=== PATIENT | female | born 1995 | race African-American/Black ===

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

== ENCOUNTER 2018-02-05 02:50 | Emergency (ER) | payer BC ==
[2018-02-05] MEDS ORDERED: SODIUM CHLORIDE 1,000 ML IV STA (03:00)
--- NOTE | 2018-02-05 03:00 | PDOC ---
History of Present Illness - General Chief Complaint: Nausea/Vomiting Stated Complaint: VOMITING Time Seen by Provider: 02/05/18 03:00 History Source: Patient - History of Present Illness Initial Comments: 02/05/18 04:33 22 year old female with NV x 2 days, denies abdominal pain or discomfort, urinary symptoms./ patient reports that she normally has episodes of vomiting during the start of her menstrual cycle for one day this time vomiting. LMP . Past History - Past Medical History Allergies/Adverse Reactions: Allergies Allergy/AdvReac Type Severity Reaction Status Date / Time No Known Allergies Allergy Verified 11/17/16 00:41 Home Medications: Ambulatory Orders NK [No Known Home Medication] 02/05/18 Asthma: Yes - Immunization History Immunization Up to Date: Yes - Suicide/Smoking/Psychosocial Hx Smoking Status: No Smoking History: Never smoked Have you smoked in the past 12 months: No Number of Cigarettes Smoked Daily: 0 Hx Alcohol Use: No Drug/Substance Use Hx: No Substance Use Type: None Review of Systems - Review of Systems Able to Perform ROS?: Yes Is the patient limited German proficient: No Constitutional: No: Symptoms Reported, See HPI, Chills, Diaphoresis, Fever, Loss of Appetite, Malaise, Night Sweats, Weakness, Weight Stable, Unintentional Wgt. Loss, Unexplained wgt Loss, Other ABD/GI: Yes: Nausea, Vomiting *Physical Exam - Vital Signs 02/05/18 04:57 Last Vital Signs Temp Pulse Resp BP Pulse Ox 98.5 F 98 H 19 101/67 100 02/05/18 03:00 02/05/18 03:00 02/05/18 03:00 02/05/18 03:00 02/05/18 03:00 - Physical Exam General Appearance: Yes: Appropriately Dressed Respiratory/Chest: positive: Lungs Clear, Normal Breath Sounds Cardiovascular: positive: Regular Rhythm, Regular Rate ED Treatment Course - LABORATORY CBC & Chemistry Diagram: 02/05/18 03:00 02/05/18 03:00 Medical Decision Making - Medical Decision Making 02/05/18 05:56 currently tolerating PO . no abdominal pain. 02/05/18 05:58 UA moderate epithelial cells , leuks , large blood and wbc. no urinary symptoms. not a clean sample. will defer treatment. *DC/Admit/Observation/Transfer Diagnosis at time of Disposition: Nausea & vomiting Qualifiers: Vomiting type: unspecified Vomiting Intractability: non-intractable Qualified Code(s): R11.2 - Nausea with vomiting, unspecified - Discharge Dispostion Disposition: HOME - Referrals Referrals: Ferdinand Negron MD [Primary Care Provider] - - Patient Instructions Printed Discharge Instructions: DI for Vomiting -- Adult Additional Instructions: drink plenty of fluids or gatorade start a BRAT (bananas, rice apples, toast) follow up with your doctor as soon as possible. - Post Discharge Activity
[2018-02-05] MEDS ORDERED: ONDANSETRON 4 MG/2 ML VIAL IVPUSH ONE (03:15)
[2018-02-05] MEDS ORDERED: ONDANSETRON 4 MG/2 ML VIAL ONE ×2 (03:18)
[2018-02-05 03:21] LABS: BASO % 0.5 % (0-2.0); EOS % 1.2 % (0-4.5); HEMATOCRIT 39.1 % (32.4-45.2); HEMOGLOBIN 13.6 GM/dL (10.7-15.3); MCH 30.1 pg (25.7-33.7); MCHC 34.9 g/dl (32.0-36.0); MEAN CELL VOLUME 86.1 fl (80-96); MEAN PLT VOLUME 7.4 fl (7.5-11.1); MONO % 5.8 % (3.8-10.2); NEUT % 69.5 % (42.8-82.8); PLATELET COUNT 304 K/MM3 (134-434); RBC 4.53 M/mm3 (3.60-5.2); RDW 13.6 % (11.6-15.6); WHITE BLOOD COUNT 3.8 K/mm3 (4.0-10.0)
[2018-02-05 03:48] VITALS: BP 101/67; PULSE 98; TEMP 98.5; BMI 15.9
[2018-02-05 04:17] LABS: ALBUMIN 4.3 g/dl (3.4-5.0); ALK PHOS 67 U/L (45-117); ANION GAP 12 MMOL/L (8-16); BILIRUBIN,TOTAL 0.6 mg/dL (0.2-1); BLOOD UREA NITROGEN 17 mg/dL (7-18); CALCIUM 9.3 mg/dL (8.5-10.1); CHLORIDE 104 mmol/L (98-107); CO2 23 mmol/L (21-32); CREATININE 0.8 mg/dL (0.55-1.3); GLUCOSE,RANDOM 96 mg/dL (74-106); LIPASE 114 U/L (73-393); POTASSIUM 3.6 mmol/L (3.5-5.1); SGOT/AST 17 U/L (15-37); SGPT/ALT 18 U/L (13-61); SODIUM 139 mmol/L (136-145)
[2018-02-05 04:38] LABS: URINE APPEARANCE SLCLOUDY; URINE COLOR DKYELLOW; URINE GLUCOSE (UA) NEGATIVE (NEGATIVE); URINE KETONE 2+ (NEGATIVE); URINE LEUK ESTERASE 2+ (NEGATIVE); URINE NITRITE NEGATIVE (NEGATIVE); URINE PROTEIN 2+ (NEGATIVE); URINE UROBILINOGEN 4.0 E.U/dl mg/dL (0.2-1.0)
[2018-02-05] MEDS ORDERED: SODIUM CHLORIDE 1,000 ML IV SCH (04:45)
[2018-02-05 04:47] LABS: EPI CELLS MODERATE /HPF (FEW); URINE BACTERIA FEW /hpf (NONE SEEN); URINE HYALINE CAST 2 /lpf; URINE MUCUS MANY
== END 2018-02-05 06:58 | disposition home or self-care (01) ==
LOC: JER 02:50
PROC: 3E0337Z Introduction of Electrolytic and Water Balance Substance into Peripheral Vein, Percutaneous Approach (ICD-10-PCS; principal; 2018-02-05)
PROC: 3E033GC Introduction of Other Therapeutic Substance into Peripheral Vein, Percutaneous Approach (ICD-10-PCS; 2018-02-05)
DX: R11.2 Nausea with vomiting, unspecified (principal)
CPT/HCPCS: 36415; 80053; 81003; 81015; 83690; 84703; 85025; 99282-25; J7030

== ENCOUNTER 2018-05-19 11:45 | Emergency (ER) | payer BC ==
[2018-05-19 12:04] VITALS: BP 95/61; PULSE 74; TEMP 98.9; BMI 20.7
[2018-05-19] MEDS ORDERED: ONDANSETRON 4 MG/2 ML VIAL IVPUSH ONE (12:59)
--- NOTE | 2018-05-19 13:01 | PDOC ---
History of Present Illness - General Chief Complaint: Nausea/Vomiting Stated Complaint: VOMITING Time Seen by Provider: 05/19/18 12:55 History Source: Patient Past History - Past Medical History Allergies/Adverse Reactions: Allergies Allergy/AdvReac Type Severity Reaction Status Date / Time No Known Allergies Allergy Verified 11/17/16 00:41 Home Medications: Ambulatory Orders Metoclopramide HCl [Reglan] 10 mg PO Q8H #12 tablet 05/19/18 Nitrofurantoin Monohyd/M-Cryst [Macrobid -] 100 mg PO BID #14 capsule 05/19/18 Asthma: Yes COPD: No Other medical history: scoliosis - Immunization History Immunization Up to Date: Yes - Suicide/Smoking/Psychosocial Hx Smoking Status: No Smoking History: Never smoked Have you smoked in the past 12 months: No Number of Cigarettes Smoked Daily: 0 Information on smoking cessation initiated: No Hx Alcohol Use: No Drug/Substance Use Hx: No Substance Use Type: None Review of Systems - Review of Systems Constitutional: No: Chills, Fever ABD/GI: Yes: Nausea, Vomiting. No: Diarrhea, Abdominal cramping : No: Burning, Dysuria, Discharge, Flank Pain, Hematuria *Physical Exam - Vital Signs Last Vital Signs Temp Pulse Resp BP Pulse Ox 98.9 F 74 18 95/61 98 05/19/18 12:02 05/19/18 12:02 05/19/18 12:02 05/19/18 12:02 05/19/18 12:02 - Physical Exam General Appearance: Yes: Appropriately Dressed. No: Apparent Distress HEENT: positive: Normal Voice Neck: positive: Supple Respiratory/Chest: negative: Respiratory Distress Gastrointestinal/Abdominal: positive: Soft. negative: Tender Musculoskeletal: negative: CVA Tenderness Integumentary: positive: Dry, Warm Neurologic: positive: Fully Oriented, Alert, Normal Mood/Affect ED Treatment Course - LABORATORY CBC & Chemistry Diagram: 05/19/18 13:26 05/19/18 13:26 Medical Decision Making - Medical Decision Making 05/19/18 12:56 22 yo F, h/o asthma, eczema, scoliosis, here with intermittent nausea, vomiting x several days. No significant abdominal pain and no diarrhea, fever, chills, dysuria or vag bleed. States she has been non-compliant with her OCPs and took a test last week which came out positive. ~10 weeks by dates if preg. Patient does not wish to carry to term see exam M/l hyperemesis gravidarum + preg test at home last week No care No lower abd pain/vag bleed Exam unremarkable -IVF -zofran -labs -US 05/19/18 15:44 +IUP @ 7 weeks w/ cardiac activity on US. UTI on UA, cx sent. Pt reports feeling sig better w/ meds and IVF, able to remberto po here. Will dc w/ abx, small dose of reglan and poll clerk f/u *DC/Admit/Observation/Transfer Diagnosis at time of Disposition: Hyperemesis gravidarum UTI (urinary tract infection) Qualifiers: Urinary tract infection type: acute cystitis Hematuria presence: without hematuria Qualified Code(s): N30.00 - Acute cystitis without hematuria - Discharge Dispostion Disposition: HOME Condition at time of disposition: Improved - Prescriptions Prescriptions: Metoclopramide HCl [Reglan] 10 mg PO Q8H #12 tablet Nitrofurantoin Monohyd/M-Cryst [Macrobid -] 100 mg PO BID #14 capsule - Referrals Referrals: Mary Lewis MD [Staff Physician] - - Patient Instructions Printed Discharge Instructions: Hyperemesis Gravidarum, DI for Urinary Tract Infection (UTI) Additional Instructions: Your ultrasound shows that you are about 7 weeks . There was heart activity seen. Your Urine Shows a UTI and You Were Started on Antibiotics for This. Please Follow-Up with Dr. Lewis of [facility] or follow with [facility] at [facility] at [phone], located at [place] - Post Discharge Activity
[2018-05-19 13:40] LABS: BASO % 0.5 % (0-2.0); EOS % 0.2 % (0-4.5); HEMATOCRIT 34.6 % (32.4-45.2); HEMOGLOBIN 11.6 GM/dL (10.7-15.3); MCH 28.9 pg (25.7-33.7); MCHC 33.5 g/dl (32.0-36.0); MEAN CELL VOLUME 86.4 fl (80-96); MONO % 5.7 % (3.8-10.2); NEUT % 61.6 % (42.8-82.8); PLATELET COUNT 348 K/MM3 (134-434); RDW 13.7 % (11.6-15.6); WHITE BLOOD COUNT 4.6 K/mm3 (4.0-10.0)
[2018-05-19 13:45] LABS: HCG,QUALITATIVE URINE Positive
[2018-05-19 13:48] LABS: EPI CELLS 12.5 /HPF (0-5/HPF); PH,URINE 6.5 (5.0-8.0); URINE APPEARANCE CLOUDY; URINE BACTERIA 374.3 /hpf (NEGATIVE); URINE BILIRUBIN NEGATIVE (NEGATIVE); URINE CASTS 119 /hpf (0-8); URINE COLOR DK YELLOW; URINE GLUCOSE (UA) NEGATIVE (NEGATIVE); URINE KETONE 2+ (NEGATIVE); URINE LEUK ESTERASE 2+ (NEGATIVE); URINE NITRITE NEGATIVE (NEGATIVE); URINE PROTEIN 1+ (NEGATIVE); URINE RBC 9 /hpf (0-4); URINE WBC 162 /hpf (0-5)
[2018-05-19] MEDS ORDERED: METOCLOPRAMIDE HCL INJECTION 10 MG/2 ML VIAL ONE (14:10)
[2018-05-19] MEDS ORDERED: METOCLOPRAMIDE HCL INJECTION 10 MG/2 ML VIAL IVPB ONE (14:13)
[2018-05-19] MEDS ORDERED: SODIUM CHLORIDE 1,000 ML IV STA (14:13)
[2018-05-19 14:16] LABS: ALBUMIN 3.9 g/dl (3.4-5.0); ALK PHOS 39 U/L (45-117); ANION GAP 6 MMOL/L (8-16); BILIRUBIN,TOTAL 0.4 mg/dL (0.2-1); BLOOD UREA NITROGEN 12 mg/dL (7-18); CALCIUM 9.5 mg/dL (8.5-10.1); CHLORIDE 103 mmol/L (98-107); CO2 27 mmol/L (21-32); CREATININE 0.5 mg/dL (0.55-1.3); GLUCOSE,RANDOM 78 mg/dL (74-106); LIPASE 133 U/L (73-393); SGOT/AST 12 U/L (15-37); SGPT/ALT 15 U/L (13-61); SODIUM 136 mmol/L (136-145); TOT PROT 7.3 g/dl (6.4-8.2)
--- NOTE | 2018-05-19 16:29 | PDOC ---
*Physical Exam - Vital Signs Last Vital Signs Temp Pulse Resp BP Pulse Ox 98.9 F 74 18 95/61 98 05/19/18 12:02 05/19/18 12:02 05/19/18 12:02 05/19/18 12:02 05/19/18 12:02 ED Treatment Course - LABORATORY CBC & Chemistry Diagram: 05/19/18 13:26 05/19/18 13:26 - ADDITIONAL ORDERS Additional order review: Laboratory Results 05/19/18 05/19/18 13:35 13:26 Sodium 136 Potassium 4.0 Chloride 103 Carbon Dioxide 27 Anion Gap 6 L BUN 12 Creatinine 0.5 L Creat Clearance w eGFR 157.30 Random Glucose 78 Calcium 9.5 Total Bilirubin 0.4 AST 12 L ALT 15 Alkaline Phosphatase 39 L Total Protein 7.3 Albumin 3.9 Lipase 133 Urine Color Dk yellow Urine Appearance Cloudy Urine pH 6.5 D Ur Specific Encinal 1.038 H Urine Protein 1+ H Urine Glucose (UA) Negative Urine Ketones 2+ H Urine Blood Negative Urine Nitrite Negative Urine Bilirubin Negative Urine Urobilinogen 1.0 Ur Leukocyte Esterase 2+ H Urine WBC (Auto) 162 Urine RBC (Auto) 9 Urine Casts (Auto) 119 U Pathogenic Cast Auto None seen U Epithel Cells (Auto) 12.5 Urine Bacteria (Auto) 374.3 Urine HCG, Qual Positive 05/19/18 13:26 RBC 4.00 MCV 86.4 MCHC 33.5 RDW 13.7 MPV 7.0 L Neutrophils % 61.6 Lymphocytes % 32.0 D Monocytes % 5.7 Eosinophils % 0.2 D Basophils % 0.5 - Medications Given in the ED: ED Medications Discontinued Medications Generic Name Dose Route Start Last Admin Trade Name Freq PRN Reason Stop Dose Admin Sodium Chloride 1,000 mls @ 1,000 mls/hr 05/19/18 14:13 05/19/18 14:48 Normal Saline - IV 05/19/18 15:12 1,000 mls/hr ASDIR STA Administration Metoclopramide HCl 10 mg 05/19/18 14:13 05/19/18 14:48 Reglan Injection - IVPB 05/19/18 14:14 10 mg ONCE ONE Administration Ondansetron HCl 4 mg 05/19/18 12:59 05/19/18 16:28 Zofran Injection IVPUSH 05/19/18 13:00 Not Given ONCE ONE Medical Decision Making - Medical Decision Making 05/19/18 16:29 Pt seen by Midlevel Provider under my direct supervision Ancillary studies reviewed I agree with plan as outlined by Midlevel Provider *DC/Admit/Observation/Transfer Diagnosis at time of Disposition: Hyperemesis gravidarum UTI (urinary tract infection) Qualifiers: Urinary tract infection type: acute cystitis Hematuria presence: without hematuria Qualified Code(s): N30.00 - Acute cystitis without hematuria - Discharge Dispostion Disposition: HOME Condition at time of disposition: Improved - Prescriptions Prescriptions: Metoclopramide HCl [Reglan] 10 mg PO Q8H #12 tablet Nitrofurantoin Monohyd/M-Cryst [Macrobid -] 100 mg PO BID #14 capsule - Referrals Referrals: Mary Lewis MD [Staff Physician] - - Patient Instructions Printed Discharge Instructions: Hyperemesis Gravidarum, DI for Urinary Tract Infection (UTI) Additional Instructions: Your ultrasound shows that you are about 7 weeks . There was heart activity seen. Your Urine Shows a UTI and You Were Started on Antibiotics for This. Please Follow-Up with Dr. Lewis of [facility] or follow with PROFESSOR OF FAMILY MEDICINE at [facility] at [phone], located at [place] - Post Discharge Activity
== END 2018-05-19 16:58 | disposition home or self-care (01) ==
LOC: JER 11:45
PROC: 3E033GC Introduction of Other Therapeutic Substance into Peripheral Vein, Percutaneous Approach (ICD-10-PCS; principal; 2018-05-19)
PROC: 3E0337Z Introduction of Electrolytic and Water Balance Substance into Peripheral Vein, Percutaneous Approach (ICD-10-PCS; 2018-05-19)
DX: O26.891 Other specified pregnancy related conditions, first trimester (principal); O21.0 Mild hyperemesis gravidarum; N30.00 Acute cystitis without hematuria; Z3A.01 Less than 8 weeks gestation of pregnancy
CPT/HCPCS: 36415; 76801-TC; 80053; 81003; 83690; 84703; 85025; 87086; 99283-25; J7030

== ENCOUNTER 2018-05-23 16:02 | Emergency (ER) | payer BC ==
[2018-05-23 16:19] VITALS: BP 122/63; PULSE 93; TEMP 98.9; BMI 19.8
--- NOTE | 2018-05-23 16:27 | PDOC ---
History of Present Illness - General Chief Complaint: Nausea/Vomiting Stated Complaint: VOMITING Time Seen by Provider: 05/23/18 16:25 - History of Present Illness Initial Comments: 05/23/18 17:12 The patient is a 22 year old female with a history of asthma who presents for evaluation of nausea and vomiting. The patient states that she presented to the ED 4 days ago and was diagnosed with a UTI and found out that she was 7 weeks with a confirmed IUP on US at that visit. She states that she was prescribed macrobid for the UTI. She states that she went to a clinic 1 day ago and took misoprostil for termination of the and since then has been experiencing multiple episodes of non-bilious vomiting and nausea. She states that she noted some blood streaks in her vomit prompting her presentation to the ED for further evaluation. She otherwise denies fevers, chills, SOB, chest pain, abdominal pain, vaginal bleeding, or changes with urination or bowel movements. Past History - Past Medical History Allergies/Adverse Reactions: Allergies Allergy/AdvReac Type Severity Reaction Status Date / Time No Known Allergies Allergy Verified 05/23/18 16:19 Home Medications: Ambulatory Orders Metoclopramide HCl [Reglan] 10 mg PO Q8H #12 tablet 05/19/18 Nitrofurantoin Monohyd/M-Cryst [Macrobid -] 100 mg PO BID #14 capsule 05/19/18 Ondansetron [Zofran Odt -] 4 mg SL TID #21 od.tablet 05/23/18 Asthma: Yes COPD: No - Immunization History Immunization Up to Date: Yes - Suicide/Smoking/Psychosocial Hx Smoking Status: No Smoking History: Current every day smoker Have you smoked in the past 12 months: No Number of Cigarettes Smoked Daily: 0 Information on smoking cessation initiated: No Hx Alcohol Use: No Drug/Substance Use Hx: No Substance Use Type: None Review of Systems - Review of Systems Comments:: 05/23/18 17:16 Constitutional: No fevers, chills, fatigue, malaise HEENT: No Rhinorrhea, nasal congestion, visual changes Cardiovascular: No chest pain, syncope, palpitations, lightheadedness Respiratory: No Cough, SOB, Hemoptysis, Gastrointestinal: Nausea, vomiting. No Abdominal pain, Constipation, Diarrhea, Melena Genitourinary: No Dysuria, Frequency, Urgency, Hesitancy, Hematuria, Flank pain Musculoskeletal: No Myalgia, arthralgia Skin: No rashes, itching, bruising, pallor Neurologic: No Headache, Dizziness, Numbness, Weakness, or Tingling Psychiatric: No Hallucinations. No SI or HI *Physical Exam - Vital Signs Last Vital Signs Temp Pulse Resp BP Pulse Ox 98.9 F 93 H 16 122/63 100 05/23/18 16:16 05/23/18 16:16 05/23/18 16:16 05/23/18 16:16 05/23/18 16:16 - Physical Exam Comments: 05/23/18 17:16 General Appearance: Nourished. No Apparent Distress HEENT: No Pharyngeal Erythema, Tonsillar Exudate, Tonsillar Erythema Neck: No Cervical Lymphadenopathy Respiratory/Chest: Lungs Clear, Normal Breath Sounds. No Crackles, Rales, Rhonchi, Wheezing Cardiovascular: Regular Rhythm, Regular Rate. No Murmur, Gallops, Rubs Gastrointestinal/Abdominal: Normal Bowel Sounds, Soft. Mild discomfort in the epigastric region with palpation. No Guarding, Rebound, Musculoskeletal: No CVA Tenderness Extremity: Normal Capillary Refill Integumentary: Normal Color, Dry, Warm Neurologic: Fully Oriented, Alert, Normal Mood/Affect, Normal Response, ED Treatment Course - LABORATORY CBC & Chemistry Diagram: 05/23/18 17:00 05/23/18 17:00 Medical Decision Making - Medical Decision Making 05/23/18 17:17 The patient is a 22 year old female with a history of asthma who presents for evaluation of nausea and vomiting. Given the patient's history and physical exam, we will obtain a cbc, cmp, beta-quant, ua to evaluate further. It is likely the patient's symptoms are due to side effects from the misoprostil. The patient had a confirmed IUP on US 4 days ago and given that she is undergoing termination of her with misoprostil currently, we do not believe further imaging is needed at this time. We will treat with iv fluids and zofran and continue to monitor and reassess while here in the ED. 05/23/18 18:20 CBC, cmp are unremarkable. The patient was reassessed and reports improvement in their symptoms. We are comfortable discharging the patient home in stable condition. Patient and family made aware of impression and plan, return precautions discussed including but not limited to worsening pain or symptoms, fevers, or signs of infection, chest pain, respiratory distress, inability to tolerate oral intake, dehydration, syncope, or neurologic changes. The patient is to follow up with PMD and her SOCIAL ORGANIZATION PROFESSOR as recommended within 1 week, follow up information provided and the patient will call for an appointment. The patient is to take medications as instructed for duration of time and continue with supportive care, avoid triggers and precipitants. Patient is safe for outpatient follow-up. *DC/Admit/Observation/Transfer Diagnosis at time of Disposition: Nausea & vomiting Qualifiers: Vomiting type: unspecified Vomiting Intractability: non-intractable Qualified Code(s): R11.2 - Nausea with vomiting, unspecified - Discharge Dispostion Disposition: HOME Condition at time of disposition: Stable - Prescriptions Prescriptions: Ondansetron [Zofran Odt -] 4 mg SL TID #21 od.tablet - Referrals Referrals: Ferdinand Negron MD [Primary Care Provider] - Mary Lewis MD [Staff Physician] - - Patient Instructions Printed Discharge Instructions: DI for Nausea -- Adult Additional Instructions: 1) Please follow-up with your primary care doctor and OB/ [facility] in the next 2-3 days. Please call tomorrow to schedule a follow up appointment. If you cannot follow up with your doctor within 1 week please return to the Emergency Department for any urgent issues. 2) Your laboratory results were normal here in the ER. 3) If you have any worsening of symptoms or any other concerns please return to the ER immediately. Return if worsening symptoms including fevers, headache, vomiting, visual or hearing disturbances, abdominal pain, chest pain, shortness of breath, syncope, dehydration, inability to take things by mouth/vomiting, altered mental status, or worsening concerning symptoms. 4) Please continue taking your home medications as directed. Your medications on discharge include Zofran . Do not drink alcohol with your medications. - Post Discharge Activity
[2018-05-23] MEDS ORDERED: ONDANSETRON 4 MG/2 ML VIAL IVPUSH ONE (16:33)
[2018-05-23] MEDS ORDERED: SODIUM CHLORIDE 1,000 ML IV STA (16:33)
[2018-05-23] MEDS ORDERED: ONDANSETRON 4 MG/2 ML VIAL ONE (16:59)
--- NOTE | 2018-05-23 17:06 | PDOC ---
Attending Attestation - Resident Resident Name: Hemal Almendarez - ED Attending Attestation I have performed the following: I have examined & evaluated the patient, The case was reviewed & discussed with the resident, I agree w/resident's findings & plan, Exceptions are as noted - HPI HPI: 05/23/18 17:47 The patient is a 22 year old female with no significant PMH who presents to the emergency department with nausea and vomiting today. Patient states she was seen in this ED on 05/19/18 and had a confirmed intrauterine . Patient was also told she had a UTI and was prescribed macrobid for 7 days. Patient reports one episode of vomit approximately every hour with associated epigastric pain. She states the last few episodes have been streaked with blood. Patient is currently following with an LICENSING COORDINATOR who prescribed misoprostol for an elective . Patient took one pill prior to the onset of her nausea and vomiting and will take the next four tomorrow. Patient also notes she may have seen a blood clot while urinating but is unclera if it came from her vagina or urine. She denies any abdomina pain, back pain The patient denies chest pain, shortness of breath, headache and dizziness. Denies fever, chills, diarrhea, constipation, and blood in the stool. Denies dysuria, frequency, urgency and hematuria. Allergies: NKA Past surgical history: None reported. Social history: No reported alcohol, drug or cigarette use. PCP: Dr. Atkins - Physicial Exam PE: 05/23/18 17:53 general: well appearing, no distress abd: soft nontender, no cva tenderness card: rrr, no mrg - Medical Decision Making 05/23/18 17:04 suspect natural course of misoprostol will treat symptmatically no current abd pain if feeling better will dc with zofran po and obgy fu <Arnold Naranjo - Last Filed: 05/23/18 18:07> - HPI HPI: 05/23/18 18:41 Documentation prepared by Zayda Giang, acting as medical doctor md/medical director for Arnold Naranjo MD. <Zayda Giang - Last Filed: 05/23/18 18:41>
[2018-05-23 17:20] LABS: BASO % 0.5 % (0-2.0); EOS % 0.1 % (0-4.5); HEMATOCRIT 32.1 % (32.4-45.2); HEMOGLOBIN 10.9 GM/dL (10.7-15.3); MCH 29.2 pg (25.7-33.7); MCHC 34.1 g/dl (32.0-36.0); MEAN CELL VOLUME 85.6 fl (80-96); MEAN PLT VOLUME 6.9 fl (7.5-11.1); MONO % 6.8 % (3.8-10.2); NEUT % 61.6 % (42.8-82.8); PLATELET COUNT 346 K/MM3 (134-434); RBC 3.75 M/mm3 (3.60-5.2); RDW 13.9 % (11.6-15.6); WHITE BLOOD COUNT 4.4 K/mm3 (4.0-10.0)
[2018-05-23 17:50] LABS: ALBUMIN 3.8 g/dl (3.4-5.0); ALK PHOS 35 U/L (45-117); ANION GAP 7 MMOL/L (8-16); BILIRUBIN,TOTAL 0.6 mg/dL (0.2-1); BLOOD UREA NITROGEN 11 mg/dL (7-18); CHLORIDE 106 mmol/L (98-107); CO2 23 mmol/L (21-32); CREATININE 0.5 mg/dL (0.55-1.3); GLUCOSE,RANDOM 96 mg/dL (74-106); POTASSIUM 3.7 mmol/L (3.5-5.1); SGOT/AST 12 U/L (15-37); SGPT/ALT 13 U/L (13-61); SODIUM 136 mmol/L (136-145); TOT PROT 6.7 g/dl (6.4-8.2)
== END 2018-05-23 18:40 | disposition home or self-care (01) ==
LOC: JER 16:02
DX: O26.891 Other specified pregnancy related conditions, first trimester (principal); R11.2 Nausea with vomiting, unspecified; T47.1X5A Adverse effect of other antacids and anti-gastric-secretion drugs, initial encounter; Y92.038 Other place in apartment as the place of occurrence of the external cause; Z3A.01 Less than 8 weeks gestation of pregnancy
CPT/HCPCS: 36415; 80053; 84702; 85025; 99283-25; J7030

== ENCOUNTER 2020-08-18 12:47 | Emergency (ER) | payer OTHER ==
[2020-08-18 13:04] VITALS: BP 96/66; PULSE 77; TEMP 98.7; BMI 20.7
[2020-08-18] MEDS ORDERED: IBUPROFEN 600 MG TABLET (FP) PO ONE ×2 (13:45→14:03)
== END 2020-08-18 14:20 | disposition home or self-care (01) ==
LOC: JER 12:47
DX: S93.509A Unspecified sprain of unspecified toe(s), initial encounter (principal)
CPT/HCPCS: 73630-TC-LT; 99284-25

== ENCOUNTER 2021-01-30 09:39 | Emergency (ER) | payer OTHER ==
[2021-01-30 10:19] VITALS: BP 115/62; PULSE 88; TEMP 99.4; BMI 20.7
[2021-01-30] MEDS ORDERED: ACETAMINOPHEN 1000 MG/100 ML VIAL IVPB ONE (11:37)
[2021-01-30] MEDS ORDERED: METOCLOPRAMIDE HCL INJECTION 10 MG/2 ML VIAL IVPB ONE (11:37)
[2021-01-30] MEDS ORDERED: SODIUM CHLORIDE 1,000 ML IV STA ×2 (11:37→15:10)
[2021-01-30] MEDS ORDERED: METOCLOPRAMIDE HCL INJECTION 10 MG/2 ML VIAL ONE (12:50)
[2021-01-30] MEDS ORDERED: ACETAMINOPHEN INJECTION 100 ML IVPB ONE (12:50)
[2021-01-30 13:41] LABS: BASO % 0.6 % (0-2.0); EOS % 1.2 % (0-4.5); HEMOGLOBIN 11.2 GM/dL (10.7-15.3); MCH 29.3 pg (25.7-33.7); MCHC 33.1 g/dl (32.0-36.0); MEAN CELL VOLUME 88.4 fl (80-96); MEAN PLT VOLUME 7.4 fl (7.5-11.1); MONO % 11.1 % (3.8-10.2); NEUT % 82.1 % (42.8-82.8); PLATELET COUNT 243 10^3/uL (134-434); RBC 3.84 M/mm3 (3.60-5.2); RDW 13.8 % (11.6-15.6); WHITE BLOOD COUNT 3.9 K/mm3 (4.0-10.0)
[2021-01-30 13:53] LABS: EPI CELLS >36 /uL (0-25.1); HYALINE CASTS 3 /uL (0-3.1); URINE APPEARANCE CLOUDY; URINE BACTERIA 845 /uL (0-1359); URINE BILIRUBIN NEGATIVE (NEGATIVE); URINE COLOR YELLOW; URINE GLUCOSE (UA) NEGATIVE (NEGATIVE); URINE KETONE NEGATIVE (NEGATIVE); URINE LEUK ESTERASE 1+ (NEGATIVE); URINE NITRITE NEGATIVE (NEGATIVE); URINE PROTEIN NEGATIVE (NEGATIVE); URINE WBC 75 /uL (0-25.8)
[2021-01-30 14:00] LABS: BLOOD UREA NITROGEN 9.5 mg/dL (7-18); CALCIUM 9.3 mg/dL (8.5-10.1)
[2021-01-30 14:01] LABS: ALBUMIN 4.1 g/dl (3.4-5.0)
[2021-01-30 14:03] LABS: CREATININE 0.6 mg/dL (0.55-1.3)
[2021-01-30 14:05] LABS: BILIRUBIN,TOTAL 0.4 mg/dL (0.2-1); TOT PROT 7.4 g/dl (6.4-8.2)
[2021-01-30] MEDS ORDERED: KETOROLAC TROMETHAMINE 60 MG/2 ML VIAL IVPUSH ONE (15:10)
[2021-01-30 15:11] LABS: URINE RBC 183 /uL (0-23.9); YEAST PRESENT (NEGATIVE)
[2021-01-30] MEDS ORDERED: KETOROLAC TROMETHAMINE 30 MG/1 ML VIAL ONE (15:28)
== END 2021-01-30 17:37 ==
LOC: JER 09:39
PROC: 3E0333Z Introduction of Anti-inflammatory into Peripheral Vein, Percutaneous Approach (ICD-10-PCS; principal; 2021-01-30)
PROC: 3E0333Z Introduction of Anti-inflammatory into Peripheral Vein, Percutaneous Approach (ICD-10-PCS; 2021-01-30)
PROC: 3E033GC Introduction of Other Therapeutic Substance into Peripheral Vein, Percutaneous Approach (ICD-10-PCS; 2021-01-30)
PROC: 3E0337Z Introduction of Electrolytic and Water Balance Substance into Peripheral Vein, Percutaneous Approach (ICD-10-PCS; 2021-01-30)
PROC: 3E0337Z Introduction of Electrolytic and Water Balance Substance into Peripheral Vein, Percutaneous Approach (ICD-10-PCS; 2021-01-30)
DX: U07.1 COVID-19 (principal); R51.9 Headache, unspecified; R11.2 Nausea with vomiting, unspecified
CPT/HCPCS: 36415; 80053; 81003; 83690; 85025; 87086; 87804; 99284-25; C9803; J0131; U0003; U0005

== ENCOUNTER 2021-12-12 03:17 | Emergency (ER) | payer OTHER ==
[2021-12-12 03:29] VITALS: BP 115/70; PULSE 115; RESP 18; TEMP 99.1
[2021-12-12] MEDS ORDERED: ONDANSETRON *ODT* 4 MG TABLET SL ONE (04:14)
[2021-12-12] MEDS ORDERED: ONDANSETRON *ODT* 4 MG TABLET ONE (04:17)
[2021-12-12 05:02] LABS: EPI CELLS 19 /uL (0-25.1); HYALINE CASTS 2 /uL (0-3.1); PH,URINE >= 9.0 (5.0-8.0); URINE APPEARANCE CLEAR; URINE BACTERIA 546 /uL (0-1359); URINE BILIRUBIN NEGATIVE (NEGATIVE); URINE COLOR YELLOW; URINE GLUCOSE (UA) NEGATIVE (NEGATIVE); URINE KETONE TRACE (NEGATIVE); URINE LEUK ESTERASE 2+ (NEGATIVE); URINE NITRITE NEGATIVE (NEGATIVE); URINE PROTEIN TRACE (NEGATIVE); URINE RBC 190 /uL (0-23.9); URINE WBC 150 /uL (0-25.8)
[2021-12-12] MEDS ORDERED: SODIUM CHLORIDE 0.9% 500 ML INFUS.BAG IV ONE (05:06)
[2021-12-12] MEDS ORDERED: FAMOTIDINE 20 MG/50 ML IVPB 20 MG/50 ML MG IVPB ONE (05:06)
[2021-12-12] MEDS ORDERED: CEFTRIAXONE 1 GM in DEXTROSE 5%-WATER - 100 ML IVPB ONE (05:07)
[2021-12-12] MEDS ORDERED: FAMOTIDINE 10 MG/ML VIAL IVPB ONE (05:15)
[2021-12-12] MEDS ORDERED: CEFTRIAXONE 1 GM/50 ML BAG ONE (05:15)
[2021-12-12 06:46] LABS: BASO % 0.6 % (0-2.0); EOS % 0.1 % (0-4.5); HEMATOCRIT 32.3 % (32.4-45.2); HEMOGLOBIN 10.7 GM/dL (10.7-15.3); LYMPH % 11.5 % (8-40); MCH 29.1 pg (25.7-33.7); MCHC 33.1 g/dl (32.0-36.0); MEAN CELL VOLUME 87.9 fl (80-96); MEAN PLT VOLUME 8.1 fl (7.5-11.1); MONO % 5.7 % (3.8-10.2); NEUT % 82.1 % (42.8-82.8); PLATELET COUNT 207 10^3/uL (134-434); RBC 3.68 M/mm3 (3.60-5.2); RDW 13.3 % (11.6-15.6); WHITE BLOOD COUNT 5.7 K/mm3 (4.0-10.0)
[2021-12-12 07:09] LABS: ALBUMIN 3.6 g/dl (3.4-5.0); BLOOD UREA NITROGEN 9.3 mg/dL (7-18); CALCIUM 8.8 mg/dL (8.5-10.1)
[2021-12-12 07:12] LABS: CREATININE 0.7 mg/dL (0.55-1.3)
[2021-12-12 07:14] LABS: BILIRUBIN,TOTAL 0.5 mg/dL (0.2-1); TOT PROT 6.2 g/dl (6.4-8.2)
== END 2021-12-12 07:20 | disposition home or self-care (01) ==
LOC: JER 03:17
PROC: 3E033GC Introduction of Other Therapeutic Substance into Peripheral Vein, Percutaneous Approach (ICD-10-PCS; principal; 2021-12-12)
DX: O23.41 Unspecified infection of urinary tract in pregnancy, first trimester (principal); O21.9 Vomiting of pregnancy, unspecified; Z3A.01 Less than 8 weeks gestation of pregnancy
CPT/HCPCS: 0241U-QW; 36415; 80053; 81003; 82962; 83690; 84703; 85025; 87086; 99284-25; Q0162

== ENCOUNTER 2021-12-26 07:27 | Emergency (ER) | payer OTHER ==
[2021-12-26 07:36] VITALS: RESP 18; BMI 20.2
[2021-12-26] MEDS ORDERED: LACTATED RINGERS SOLUTION 1000 ML INFUS.BAG IV ONE (07:58)
[2021-12-26] MEDS ORDERED: ONDANSETRON 4 MG/2 ML VIAL IVPUSH ONE (07:58)
[2021-12-26] MEDS ORDERED: ACETAMINOPHEN 1000 MG/100 ML BAG IVPB ONE (07:59)
[2021-12-26] MEDS ORDERED: ACETAMINOPHEN INJECTION 100 ML IVPB ONE (08:20)
[2021-12-26] MEDS ORDERED: ONDANSETRON 4 MG/2 ML VIAL ONE (08:20)
[2021-12-26 08:43] LABS: BASO % 0.5 % (0-2.0); HEMATOCRIT 31.9 % (32.4-45.2); HEMOGLOBIN 10.8 GM/dL (10.7-15.3); LYMPH % 11.7 % (8-40); MCH 29.6 pg (25.7-33.7); MCHC 33.7 g/dl (32.0-36.0); MEAN CELL VOLUME 87.8 fl (80-96); MONO % 8.3 % (3.8-10.2); NEUT % 79.5 % (42.8-82.8); PLATELET COUNT 259 10^3/uL (134-434); RBC 3.63 M/mm3 (3.60-5.2); RDW 13.2 % (11.6-15.6); WHITE BLOOD COUNT 3.7 K/mm3 (4.0-10.0)
[2021-12-26 08:46] LABS: EPI CELLS >36 /uL (0-25.1); HYALINE CASTS 16 /uL (0-3.1); PH,URINE 5.5 (5.0-8.0); URINE APPEARANCE CLOUDY; URINE BACTERIA 294 /uL (0-1359); URINE BILIRUBIN NEGATIVE (NEGATIVE); URINE COLOR YELLOW; URINE GLUCOSE (UA) NEGATIVE (NEGATIVE); URINE KETONE 1+ (NEGATIVE); URINE LEUK ESTERASE 2+ (NEGATIVE); URINE NITRITE NEGATIVE (NEGATIVE); URINE PROTEIN 1+ (NEGATIVE); URINE WBC 323 /uL (0-25.8)
[2021-12-26 09:08] LABS: CALCIUM 8.9 mg/dL (8.5-10.1)
[2021-12-26 09:09] LABS: ALBUMIN 3.6 g/dl (3.4-5.0); BLOOD UREA NITROGEN 10.1 mg/dL (7-18); MAGNESIUM 1.7 mg/dL (1.8-2.4)
[2021-12-26 09:11] LABS: CREATININE 0.7 mg/dL (0.55-1.3)
[2021-12-26 09:13] LABS: BILIRUBIN,TOTAL 0.6 mg/dL (0.2-1); TOT PROT 6.5 g/dl (6.4-8.2)
[2021-12-26] MEDS ORDERED: POTASSIUM CHLORIDE TABS 20 MEQ TABLET.ER (FP) PO ONE ×2 (09:13→09:41)
[2021-12-26] MEDS ORDERED: MAGNESIUM SULF 50% (8.12 MEQ/2 ML-1 GM VIAL) IVPB ONE (09:13)
[2021-12-26] MEDS ORDERED: MAGNESIUM 1GM/D5W - 1 GM/100 ML IVPB IVPB ONE (09:39)
[2021-12-26 10:10] VITALS: BP 90/43; PULSE 84; TEMP 99.4
[2021-12-26 14:45] LABS: URINE RBC 21.6 /uL (0-23.9)
== END 2021-12-26 10:38 | disposition home or self-care (01) ==
LOC: JER 07:27
PROC: 3E033GC Introduction of Other Therapeutic Substance into Peripheral Vein, Percutaneous Approach (ICD-10-PCS; principal; 2021-12-26)
DX: J09.X2 Influenza due to identified novel influenza A virus with other respiratory manifestations (principal)
CPT/HCPCS: 0241U-QW; 36415; 71046-TC-FY; 80053; 81003; 83690; 83735; 84703; 85025; 87086; 99284-25

== ENCOUNTER 2021-12-28 17:14 | Emergency (ER) | payer OTHER ==
[2021-12-28 17:34] VITALS: BP 107/74; PULSE 93; RESP 18; TEMP 98.3; BMI 23.0
[2021-12-28] MEDS ORDERED: KETOROLAC TROMETHAMINE 30 MG/1 ML VIAL IM ONE (18:09)
[2021-12-28] MEDS ORDERED: METHOCARBAMOL 500 MG TABLET PO ONE (18:09)
[2021-12-28] MEDS ORDERED: KETOROLAC TROMETHAMINE 30 MG/1 ML VIAL ONE (18:19)
[2021-12-28] MEDS ORDERED: METHOCARBAMOL 500 MG TABLET ONE ×2 (18:19→18:21)
== END 2021-12-28 18:49 | disposition home or self-care (01) ==
LOC: JER 17:14 → JERFT 17:14
PROC: 3E0233Z Introduction of Anti-inflammatory into Muscle, Percutaneous Approach (ICD-10-PCS; principal; 2021-12-28)
DX: M54.2 Cervicalgia (principal); V49.40XA Driver injured in collision with unspecified motor vehicles in traffic accident, initial encounter
CPT/HCPCS: 99284-25

== ENCOUNTER 2021-12-31 10:53 | Emergency (ER) | payer OTHER ==
[2021-12-31 10:59] VITALS: BP 119/75; PULSE 74; RESP 20; TEMP 97.9; BMI 20.2
[2021-12-31] MEDS ORDERED: ONDANSETRON *ODT* 4 MG TABLET SL ONE (11:06)
== END 2021-12-31 14:00 | disposition left against medical advice (07) ==
LOC: JERFT 10:53
DX: R11.2 Nausea with vomiting, unspecified (principal)
CPT/HCPCS: 99283-25; Q0162

== ENCOUNTER 2022-03-18 14:06 | Emergency (ER) | payer OTHER ==
[2022-03-18 14:36] VITALS: BMI 20.7
[2022-03-18] MEDS ORDERED: ONDANSETRON *ODT* 4 MG TABLET SL ONE (16:32)
[2022-03-18 16:46] LABS: EPI CELLS 34 /uL (0-25.1); HYALINE CASTS 0 /uL (0-3.1); URINE APPEARANCE CLEAR; URINE BACTERIA 165 /uL (0-1359); URINE BILIRUBIN NEGATIVE (NEGATIVE); URINE COLOR YELLOW; URINE GLUCOSE (UA) NEGATIVE (NEGATIVE); URINE KETONE TRACE (NEGATIVE); URINE LEUK ESTERASE NEGATIVE (NEGATIVE); URINE NITRITE NEGATIVE (NEGATIVE); URINE PROTEIN NEGATIVE (NEGATIVE); URINE WBC 5 /uL (0-25.8)
[2022-03-18] MEDS ORDERED: ONDANSETRON *ODT* 4 MG TABLET ONE (16:51)
[2022-03-18 16:52] LABS: HCG,QUALITATIVE URINE Negative
[2022-03-18] MEDS ORDERED: ONDANSETRON 4 MG/2 ML VIAL IVPUSH ONE (17:03)
[2022-03-18] MEDS ORDERED: ONDANSETRON 4 MG/2 ML VIAL ONE (17:10)
[2022-03-18] MEDS ORDERED: SODIUM CHLORIDE 1,000 ML IV STA (17:21)
[2022-03-18 18:05] LABS: BASO % 0.2 % (0-2.0); EOS % 0.2 % (0-4.5); HEMATOCRIT 35.2 % (32.4-45.2); HEMOGLOBIN 11.7 GM/dL (10.7-15.3); LYMPH % 6.6 % (8-40); MCH 29.2 pg (25.7-33.7); MCHC 33.1 g/dl (32.0-36.0); MEAN CELL VOLUME 88.3 fl (80-96); MEAN PLT VOLUME 7.1 fl (7.5-11.1); MONO % 3.4 % (3.8-10.2); NEUT % 89.6 % (42.8-82.8); PLATELET COUNT 259 10^3/uL (134-434); RBC 3.99 M/mm3 (3.60-5.2); RDW 14.6 % (11.6-15.6)
[2022-03-18 18:26] LABS: BLOOD UREA NITROGEN 14.9 mg/dL (7-18); CALCIUM 9.1 mg/dL (8.5-10.1); MAGNESIUM 1.8 mg/dL (1.8-2.4)
[2022-03-18 18:29] LABS: CREATININE 0.7 mg/dL (0.55-1.3)
[2022-03-18 18:31] LABS: BILIRUBIN,TOTAL 0.9 mg/dL (0.2-1)
[2022-03-18] MEDS ORDERED: ACETAMINOPHEN 325 MG TABLET (FP) PO ONE (18:53)
[2022-03-18] MEDS ORDERED: ACETAMINOPHEN 325 MG TABLET (FP) ONE (18:55)
[2022-03-18 19:16] VITALS: BP 109/58; PULSE 98; RESP 16; TEMP 101.3
== END 2022-03-18 19:14 | disposition home or self-care (01) ==
LOC: JER 14:06
PROC: 3E033GC Introduction of Other Therapeutic Substance into Peripheral Vein, Percutaneous Approach (ICD-10-PCS; principal; 2022-03-18)
DX: R11.2 Nausea with vomiting, unspecified (principal)
CPT/HCPCS: 0241U-QW; 36415; 80053; 81003; 83735; 84703; 85025; 87077; 87086; 99284-25

== ENCOUNTER 2022-10-19 05:32 | Emergency (ER) | payer OTHER ==
[2022-10-19 05:40] VITALS: RESP 18; BMI 20.7
[2022-10-19 06:29] LABS: EPI CELLS >36 /uL (0-25.1); HCG,QUALITATIVE URINE Negative; HYALINE CASTS 2 /uL (0-3.1); URINE APPEARANCE CLOUDY; URINE BACTERIA 510 /uL (0-1359); URINE BILIRUBIN NEGATIVE (NEGATIVE); URINE COLOR YELLOW; URINE GLUCOSE (UA) NEGATIVE (NEGATIVE); URINE KETONE 1+ (NEGATIVE); URINE LEUK ESTERASE TRACE (NEGATIVE); URINE NITRITE NEGATIVE (NEGATIVE); URINE PROTEIN 1+ (NEGATIVE); URINE RBC 130 /uL (0-23.9); URINE WBC 12 /uL (0-25.8)
[2022-10-19] MEDS ORDERED: ONDANSETRON 4 MG TABLET PO ONE ×2 (07:47→07:58)
[2022-10-19] MEDS ORDERED: guaiFENesin 200 MG/10 ML 10 ML UNIT-DOSE CUPS PO ONE (08:50)
[2022-10-19] MEDS ORDERED: guaiFENesin 200 MG/10 ML 10 ML UNIT-DOSE CUPS ONE (09:03)
[2022-10-19] MEDS ORDERED: ACETAMINOPHEN 500 MG TABLET (FP) PO ONE (09:57)
[2022-10-19 10:00] VITALS: BP 113/56; PULSE 76; TEMP 100.2
[2022-10-19] MEDS ORDERED: ACETAMINOPHEN 500 MG TABLET (FP) ONE (10:18)
== END 2022-10-19 10:28 | disposition home or self-care (01) ==
LOC: JER 05:32
DX: R11.2 Nausea with vomiting, unspecified (principal); R05.9 Cough, unspecified; B34.9 Viral infection, unspecified; Z20.822 Contact with and (suspected) exposure to COVID-19
CPT/HCPCS: 0241U-QW; 81003; 84703; 87086; 99283-25

== ENCOUNTER 2023-07-26 15:04 | Emergency (ER) | payer OTHER ==
[2023-07-26 15:12] VITALS: BP 113/60; PULSE 110; RESP 18; TEMP 98.6; BMI 20.7
[2023-07-26] MEDS ORDERED: ERYTHROMYCIN 0.5% OPHTHALMIC OINTMENT 3.5 GM TUBE ONE (15:29)
[2023-07-27] MEDS ORDERED: ERYTHROMYCIN 0.5% OPHTHALMIC OINTMENT 3.5 GM TUBE OD ONE (15:28)
== END 2023-07-26 15:41 | disposition home or self-care (01) ==
LOC: JERFT 15:04
DX: H01.00A Unspecified blepharitis right eye, upper and lower eyelids (principal)
CPT/HCPCS: 99283-25